=== PATIENT | female | born 1985 | race African-American/Black ===

== ENCOUNTER 2017-11-24 20:49 | Emergency (ER) | payer OTHER ==
[2017-11-24 21:13] LABS: URINE HCG POC HCG POSITIVE (Negative)
[2017-11-24 21:47] LABS: AGAP ISTAT 15 mmol/L (6-14); BUN ISTAT 9 mg/dL (8-26); CHLORIDE ISTAT 103 mmol/L (98-110); CREATININE ISTAT 0.5 mg/dL (0.5-1.4); GLUCOSE ISTAT 87 mg/dL (70-99); HEMATOCRIT ISTAT 33 % (36-40); HEMOGLOBIN ISTAT 11.2 g/dL (12-15); ION CA ISTAT 1.21 mmol/L (1.13-1.32); POTASSIUM ISTAT 4.1 mmol/L (3.5-5.0); SODIUM ISTAT 134 mmol/L (135-145); TOT CO2 ISTAT 22 mmol/L (23-32)
[2017-11-24] MEDS: IV NORMAL SALINE 1000ML BAG 1,000 ML IV (22:01)
== END 2017-11-25 00:40 | disposition home or self-care (01) ==
LOC: ER 11-25 00:40
DX: O36.4XX0 Maternal care for intrauterine death, not applicable or unspecified (principal); O99.511 Diseases of the respiratory system complicating pregnancy, first trimester; J45.909 Unspecified asthma, uncomplicated; Z3A.14 14 weeks gestation of pregnancy
CPT/HCPCS: 36415; 76801; 76817; 80047; 81025; 84702; 86901; 96360; 99285-25; J7030

== ENCOUNTER 2017-12-03 08:53 | Day surgery (SDC) | payer OTHER ==
[~2017-12-03 08:53] MED LIST: HYDROmorphone 2 MG/ML VIAL IV; LIDOCAINE 1% PF 2 ML VIAL. ID; MORPHINE SULFATE 4 MG/ML DISP.SYRIN. IV; ONDANSETRON PF 4 MG/2 ML VIAL. IV; fentaNYL PF VIAL 100 MCG/2 ML VIAL IV
[2017-12-03] MEDS: IV RINGERS,LACTATED 1000ML 1,000 ML IV (09:59)
[2017-12-03 10:03] LABS: ADD MAN DIFF? NO
[2017-12-03 10:06] LABS: BASO # 0.1 x10^3/uL (0.0-0.2); BASO % 1 % (0-3); EOS # 0.4 x10^3/uL (0.0-0.7); EOS % 4 % (0-3); HEMATOCRIT 32.2 % (36.0-47.0); HEMOGLOBIN 10.7 g/dL (12.0-15.5); LYMPH # 2.7 x10^3/uL (1.0-4.8); LYMPH % 24 % (24-48); MEAN CORPUSCULAR HEMOGLOBIN 27 pg (25-35); MEAN CORPUSCULAR HGB CONC 33 g/dL (31-37); MEAN CORPUSCULAR VOLUME 80 fL (79-100); MONO # 0.8 x10^3/uL (0.0-1.1); MONO % 7 % (0-9); NEUT # 7.1 x10^3uL (1.8-7.7); NEUT % 64 % (31-73); PLATELET COUNT 318 x10^3/uL (140-400); RED BLOOD COUNT 4.04 x10^6/uL (3.50-5.40); RED CELL DISTRIBUTION WIDTH 13.9 % (11.5-14.5)
[2017-12-03] MEDS ORDERED: DEXAMETHASONE SOD PHOS 20 MG/5 ML VIAL. (10:22)
[2017-12-03] MEDS ORDERED: PROPOFOL 20 ML IV (10:22)
[2017-12-03] MEDS ORDERED: LIDOCAINE 2% PF Vial for OR 5 ML VIAL. (10:22)
[2017-12-03] MEDS ORDERED: fentaNYL PF VIAL 100 MCG/2 ML VIAL ×2 (10:23→11:32)
[2017-12-03] MEDS ORDERED: ONDANSETRON PF 4 MG/2 ML VIAL. (10:23)
[2017-12-03] MEDS ORDERED: MIDAZOLAM HCL/PF 2 MG/2 ML VIAL. (10:23)
[2017-12-03] MEDS ORDERED: KETOROLAC 30 MG/ML INJ FOR OR. INJ (11:11)
[2017-12-03] MEDS ORDERED: OXYTOCIN 10 UNIT/ML VIAL. (11:20)
[2017-12-03] MEDS ORDERED: PROCHLORPERAZINE 10 MG/2 ML VIAL. (11:32)
[2017-12-03] MEDS ORDERED: ceFAZolin 2GM PREMIX 2 GM/50 ML BAG IV (12:00)
[2017-12-03] MEDS: PROCHLORPERAZINE 10 MG/2 ML VIAL. IV (12:03)
[2017-12-03] MEDS: fentaNYL PF VIAL 100 MCG/2 ML VIAL IV (12:04)
[2017-12-03] MEDS: oxyCODONE/APAP 5/325 1 TAB TABLET PO (12:08)
== END 2017-12-03 13:00 | disposition home or self-care (01) ==
LOC: SURG 08:53
DX: O02.0 Blighted ovum and nonhydatidiform mole (principal); J45.909 Unspecified asthma, uncomplicated; Z86.19 Personal history of other infectious and parasitic diseases; E66.9 Obesity, unspecified; Z68.31 Body mass index [BMI] 31.0-31.9, adult; F41.9 Anxiety disorder, unspecified; F32.9 Major depressive disorder, single episode, unspecified
CPT/HCPCS: 36415; 85025; 86850; 86900; 86901; A7015; J0690; J0780; J1100; J1885; J2250; J2405; J2590; J2704; J3010